=== PATIENT | male | born 1995 | race Caucasian/White ===

== ENCOUNTER → 2021-02-04 14:35 | Outpatient (CLI) | payer OTHER, SELFPAY ==
[2021-02-04 17:47] LABS: COVID19 -Nasal RAPID Negative (Negative)
== END ==
PROVIDERS: Visit Provider Nurse Practitioner Family
DX: Z20.822 Contact with and (suspected) exposure to COVID-19 (principal)
CPT/HCPCS: 87635

== ENCOUNTER 2021-02-06 09:06 | Day surgery (SDC) | payer OTHER, SELFPAY ==
[2021-02-06] VITALS (8 sets, daily range): BP systolic 100–119; BP diastolic 56–71; PULSE 58–78; RESP 8–20; TEMP 36.2–36.3; O2SAT 95–100; BMI 28.7
--- NOTE | 2021-02-06 08:59 | PM.HP.1 ---
History of Present Illness History of Present Illness Date Patient Seen: 02/06/21 Chief complaint: SDC Narrative: Chest discomfort poorly responsive to medications Exam Narrative Exam Narrative: Oropharynx free of lesions Chest clear to auscultation percussion Cardiac exam reveals no S3 or murmur Assessment & Plan Assessment & Plan narrative: Chest discomfort poorly responsive to medications rule out esophagitis or peptic disease. Risks, benefits, alternatives have been explained. Time Spent With Patient Critical Care time: I spent a total of [] minutes of critical care time on this patient's care today; this time is exclusive of procedural time.
--- NOTE | 2021-02-06 09:00 | P.OP.EGD_ITS ---
Operative Date/Time/Diagnoses Date of procedure: 02/06/21 Pre-op diagnosis: See indication and findings Procedure & Clinicians Study performed: EGD Indications: Chest discomfort Surgeon: Tone Sexton Procedure Notes Procedure in detail: After informed consent was obtained the patient was placed in left lateral de cubitus position. The video upper scope was placed into the oropharynx and with the patient's help swelled the esophagus. The esophagus stomach and duodenum were carefully examined. On withdrawal retroflexed view the GE junction was performed. The scope was removed. The patient tolerated procedure well. Blood loss none Complications none Sedation mac Findings 1. Normal esophagus 2. Normal stomach 3. Normal duodenal bulb and sweep Mendel is done well off of medications and I would continue him off medications at this time. He was only minimal symptoms he will follow up on a as needed basis.
[2021-02-06] MEDS: SODIUM CHLORIDE 0.9% 1,000 ML 84 ML IV (10:39)
== END 2021-02-06 10:42 | disposition home or self-care (01) ==
PROVIDERS: Referring Provider Internal Medicine Gastroenterology; Visit Provider Internal Medicine Gastroenterology
PROC: 0DJ08ZZ Inspection of Upper Intestinal Tract, Via Natural or Artificial Opening Endoscopic (ICD-10-PCS; CPT 43235; principal; 2021-02-06 10:00)
DX: R07.89 Other chest pain (principal); Z72.0 Tobacco use
CPT/HCPCS: 43235; J2704

== ENCOUNTER 2021-09-28 17:24 | Observation (INO) | payer OTHER, SELFPAY ==
[2021-09-28 19:35] VITALS: BP 109/51; PULSE 61; RESP 17; TEMP 36.6; O2SAT 95
[2021-09-28 20:10] VITALS: BMI 27.1
[2021-09-28 22:56] VITALS: BP 115/44; PULSE 68; RESP 16; TEMP 36.5; O2SAT 97
[2021-09-28] MEDS: SODIUM CHLORIDE 0.9% 1,000 ML 125 ML IV (22:56)
[2021-09-28] MEDS: PIPERACILLIN/TAZO 3.375 GM in SODIUM CHLORIDE 0.9% 100 ML IV (23:18)
[2021-09-29] VITALS (10 sets, daily range): BP systolic 97–133; BP diastolic 47–87; PULSE 56–120; RESP 12–20; TEMP 36.2–37; O2SAT 16–99
--- NOTE | 2021-09-29 | PATH_ITS ---
[facility] Accession Number: [id number] . 01 Material submitted: . appendix - APPENDIX . 01 Clinical history: . APPY . 01 Diagnosis: Appendix, Appendectomy: Acute appendicitis and serositis. MRV 10/02/2021 1710 Local . 01 Electronically signed: . Carissa Curry MD, Pathologist NPI- [id number] . 01 Gross description: . Received in formalin and labeled with the patient's name and appendix consists of an 8.2 x 0.7 cm vermiform appendix with perez smooth serosa, dilated vasculature, and no perforations identified. A small amount of mesoappendix is attached extending up to 1.0 cm. The surgical margin is received closed with kai, which are removed, and the margin is inked blue. Serial sectioning reveals a patent pinpoint lumen filled with a small amount of semi-solid fecal material and perez johnson that average 0.3 cm thick. No fecaliths are identified. Information Receptionist sections to include one-half of the bisected distal tip, surgical margin, and marketing development representative cross-sections are submitted in cassette A1. ([id number]) /MRV 10/01/2021 1725 Local . 01 Pathologist provided ICD-10: K35.80 . 01 CPT . 505625 Specimen Comment: A courtesy copy of this report has been sent to [phone] Performed at: 01 [facility] [address] [place] [address], [place], [place] [id number] MD Shady Vera MD Phone: [phone]
[2021-09-29] MEDS: SODIUM CHLORIDE 0.9% 1,000 ML 125 ML IV (06:41)
[2021-09-29] MEDS: PIPERACILLIN/TAZO 3.375 GM in SODIUM CHLORIDE 0.9% 100 ML IV (07:28)
[2021-09-29] MEDS: LACTATED RINGERS 1,000 ML 100 ML IV ×2 (09:15→11:34)
--- NOTE | 2021-09-29 09:30 | P.HP_ITS ---
History of Present Illness History of Present Illness Date Patient Seen: 09/29/21 Time Patient Seen: 09:30 Chief complaint: appy Narrative: 26-year-old male transferred from an outside hospital with acute appendicitis. Several days of abdominal pain now focused in the right lower quadrant. CT at the outside institution demonstrates mildly inflamed appendix with some stranding no abscess free air. He is transferred here they have no surgeon available. No prior abdominal surgery. Today he is feeling better than yesterday no nausea vomiting or diarrhea fever. Patient History Medical History Chest discomfort Smoker Surgical History [place] teeth extracted Family & Social History Social History: household members spouse Safety & Behavioral: Feels Safe in Current Yes Environment Been Physically Hurt or No Threatened By a Person Tobacco & Substance use: Tobacco type e-cigarettes Smoking Status Current every day smoker alcohol intake current alcohol intake frequency holiday/special occasion Substance Use Type does not use Meds Home Medications and Allergies Home Medications Medication Instructions Recorded Confirmed Type lidocaine 5 % topical patch 1 patch topical PRN PRN Pain 09/28/21 09/28/21 History (Scale Score 1-3) naproxen 500 mg tablet 500 mg PO PRN PRN Pain (Scale 09/28/21 09/28/21 History Score 1-3) Allergies Allergy/AdvReac Type Severity Reaction Status Date / Time No Known Drug Allergies Allergy Verified 02/06/21 09:17 Exam Vital Signs (past 8 hours): - 09/29/21 03:28 09/29/21 07:40 Temperature 97.2 F L 97.4 F L Pulse Rate 66 56 L Respiratory Rate 16 20 Blood Pressure 97/47 L 106/49 L Pulse Oximetry 98 97 Oxygen Flow Rate 0 Oxygen Flow Rate 0 Narrative Exam Narrative: GENERAL: Adult male in no apparent distress HEENT: No scleral icterus CV: Regular rate, no peripheral edema LUNGS: No increased work of breathing. Patient speaks in full sentences without oxygen support. ABDOMEN: Tender right lower quadrant no peritonitis SKIN: Warm and dry Assessment & Plan Assessment and plan (1) Acute appendicitis: Status: Acute Assessment & Plan narrative: 26-year-old healthy male with symptoms and radiographic findings consistent with acute appendicitis. We discussed management options and I recommended that we proceed with laparoscopic appendectomy. Technical overview of the operation was discussed with patient. Operative risks including bleeding, infection, staple line leak, damage to surrounding structures were discussed. His questions have been answered he is in agreement with this plan. Time Spent With Patient Critical Care time: I spent a total of [] minutes of critical care time on this patient's care today; this time is exclusive of procedural time. Quality VTE Deep Vein Thrombosis/Pulmonary Embolism Present on Admission: No
--- NOTE | 2021-09-29 09:55 | SUR.OPER ---
Supine on padded OR bed, head on pillow, arms padded and tucked at sides, legs uncrossed, safety belt at thigh, tape over blanket over lower legs .
[2021-09-29] MEDS: BUPIVACAINE 0.5% (PF) VIAL 30 ML INJ (10:03)
[2021-09-29] MEDS: LACTATED RINGERS 1,000 ML 50 ML IV (10:59)
--- NOTE | 2021-09-29 11:07 | PM.OP.1 ---
Operative Date/Time/Diagnoses Date of procedure: 09/29/21 Time of procedure: 11:07 Pre-op diagnosis: Acute appendicitis Post-op diagnosis: same Procedure & Clinicians Procedure: Laparoscopic appendectomy Same procedure as scheduled: Yes Indications: Symptoms and radiographic findings consistent with acute appendicitis Surgeon: Chris White Click Yes if Unassisted: Yes Anesthesia Type: General Operative Notes Findings: Acutely inflamed appendix not perforated Specimen(s): other (Appendix) Estimated Blood Loss (mL): 20 Procedure in detail: Patient was brought to the operating room placed supine on the table. Bilateral lower extremity compression devices were applied. Anesthesia was induced and they intubated with an endotracheal tube. They received 3.375 g of Zosyn prior to skin incision. The left arm was tucked and appropriately padded. They were prepped and draped in sterile fashion. Time-out was performed. An infraumbilical incision was made the umbilical stalk was grasped and elevated and incision was made and the abdomen was entered atraumatically. A 12 mm balloon trocar was then placed through the incision and pneumoperitoneum of 14 mm Hg was established. The scope was then inserted and the abdomen inspected, there was no evidence of injury upon entry. Two 5 mm ports were placed under direct visualization, one in the left lower quadrant and second in the lower midline. A thorough laparoscopic evaluation was performed inspecting all four quadrants. The patient was then tilted right side up. The small bowel was then swept to the upper aspect of the abdomen. The tenie were followed to the base of the cecum where the appendix was identified. The appendix was acutely inflamed but not perforated. The appendix was mobilized from its lateral attachments. The appendix was grasped and a window within the mesentery was made at the base of the appendix using the [place] dissector with care to avoid injuring the cecum. The mesoappendix was then divided using cautery. The mesenteric staple line was inspected for hemostasis. The appendix was then amputated flush at the cecum using the endo-stapler blue load. The specimen was retrieved using a endoscopic retrieval bad through the 10 mm infra-umbilical port. The right paracolic gutter and the pouch of Chon were irrigated The 5 mm ports were then removed under direct visualization. The umbilical fascial incision was closed with 0 Vicryl in a figure-eight fashion. The skin wounds were irrigated and closed with 4-0 Monocryl followed by the application of Dermabond. Sponge instrument count at the end of the operation was correct. The patient tolerated procedure well was extubated and transferred to the postoperative care unit in stable condition. Complications: none Post-operative Condition: stable Disposition: Acute Care
--- NOTE | 2021-09-29 11:35 | SUR.PHASEI ---
09/29/[id number]-Jsqlil to floor RN by phone, vss. awake and alert. pain 1/10,tolerable. mild sore throat. op sites x 3 cdi. off monitor ,iv saline locked. to room by bed. no personel effects.
[2021-09-29] MEDS: OXYCODONE IR 5 MG TABLET PO (12:44)
== END 2021-09-29 13:57 | disposition home or self-care (01) ==
PROVIDERS: Admitting Provider Surgery; Referring Provider Surgery; Visit Provider Surgery
PROC: 0DTJ4ZZ Resection of Appendix, Percutaneous Endoscopic Approach (ICD-10-PCS; CPT 44970; principal; 2021-09-29 09:30)
DX: K35.80 Unspecified acute appendicitis (principal); F17.210 Nicotine dependence, cigarettes, uncomplicated
CPT/HCPCS: 44970; 99218; G0378; G0379; J1100; J1885; J2250; J2405; J2543; J2704; J3010

== ENCOUNTER → 2023-03-21 10:20 | Outpatient (CLI) | payer OTHER, SELFPAY ==
[2023-03-21 10:47] LABS: Semen Sperm Prescence Post-Vas Absent (ABSENT)
== END ==
PROVIDERS: Referring Provider Specialist; Visit Provider Specialist
DX: Z98.52 Vasectomy status (principal)
CPT/HCPCS: 89321